=== PATIENT | female | born 1940 | race Caucasian/White ===

== ENCOUNTER 2019-07-12 18:35 | Inpatient (IN) ==
[2019-07-12 19:27] LABS: Basophils # 0.1 10*3/uL (0.0-0.2); Eosinophils # 0.8 10*3/uL (0.0-0.87); Eosinophils % 11.9 % (0.00-10.9); Hemoglobin 9.8 GM/DL (12.0-16.0); Immature Granulocytes % 0.3 %; Immature Granulocytes Absolute 0.02 #; Lymphocytes # 2.8 10*3/uL (1.4-4.0); Lymphocytes % 40.6 % (21.3-54.2); Mean Corpuscular HGB Conc 30.6 GM/DL (32-36); Mean Corpuscular Volume 88.6 FL (87-102); Mean Platelet Volume 10.9 FL (9.6-12.0); Monocytes % 7.9 % (1.7-12.7); Neutrophils % 38.3 % (38.7-73.9); Platelet Count 195 T/CUMM (130-400); Red Blood Count 3.61 MC/CUMM (3.8-5.5); Red Cell Distribution Width 13.4 % (9.3-17.3); White Blood Count 6.8 T/CUMM (4-12)
[2019-07-12 19:40] LABS: PT Patient Result 10.9 SECS; Partial Thromboplastin Time 22.8 SECS (0-40)
[2019-07-12 19:41] LABS: Alanine Aminotransferase 19 U/L (13-56); Albumin 3.1 G/DL (3.4-5.0); Alkaline Phosphatase 60 U/L (45-117); Aspartate Amino Transferase 18 U/L (0-37); Bilirubin,Total < 0.39 MG/DL (0.2-1.0); Blood Urea Nitrogen 13 MG/DL (7-18); Calcium 8.9 MG/DL (8.5-10.1); Glucose 122 MG/DL (74-106); Osmolality,Calculated 283.1 MOS/KG (273-304); Total Protein 6.4 G/DL (6.4-8.3)
[2019-07-12 19:56] LABS: Eosinophils 15 % (0-10); Lymphocytes 44 % (20-55); Segmented Neutrophils 30 % (50-85); Total Cells Counted 100
[2019-07-12 19:58] LABS: Anisocytosis Slight; Microcytosis Slight; Platelet Estimate Normal
[2019-07-12 20:55] LABS: Apearance,Urine Slightly Hazy (Clear); Bilirubin,Urine Negative (Negative); Blood, Urine Negative (Negative); Glucose,Urine (UA) Negative (Negative); Hyaline Casts,Urine 3 /LPF (0-3); Ketones,Urine Negative (Negative); Mucus,Urine Occasional /LPF (Occasional); Nitrite,Urine Negative (Negative); Protein,Urine Negative; RBC,Urine 3 /HPF (0-4); Squamous Epithelial Cell,Urine Occasional /HPF (0-10); Urine Color Yellow (Yellow); Urine Specific Gravity 1.013 (1.001-1.035); Urine Urobilinogen < 2.0 EU/DL (0.2-1.0); WBC,Urine 36 /HPF (0-6)
[2019-07-12] MEDS ORDERED: cefTRIAXone 1,000 MG in SODIUM CHLORIDE 0.9% 100 ML IV STA (20:57)
[2019-07-12 20:59] LABS: Barbiturates Screen,Urine Negative (Negative); Benzodiazepines Screen,Urine Negative (Negative); Cannabinoid Screen,Urine Negative (Negative); Opiate Screen,Urine Negative (Negative); Phencyclidine Screen,Urine Negative (Negative)
[2019-07-13] MEDS ORDERED: DEXTROSE 50% 25 GM/50 ML VIAL IV PRN (00:09)
[2019-07-13] MEDS ORDERED: ONDANSETRON 4 MG/2 ML VIAL IV PRN (00:09)
[2019-07-13] MEDS ORDERED: cloNIDine 0.1 MG TABLET PO PRN (00:09)
[2019-07-13] MEDS ORDERED: ACETAMINOPHEN 325 MG TABLET PO PRN ×2 (00:09)
[2019-07-13] MEDS ORDERED: GLUCAGON 1 MG VIAL IM PRN (00:09)
[2019-07-13] MEDS ORDERED: DOCUSATE SODIUM 100 MG CAPSULE PO PRN (00:09)
[2019-07-13] MEDS ORDERED: cefTRIAXone 1,000 MG in SYRINGE 1 EACH IV SCH (00:30)
[2019-07-13] MEDS: METOPROLOL TARTRATE 100 MG TABLET PO SCH ×3 (00:47→22:50)
[2019-07-13] MEDS: SERTRALINE 25 MG TABLET PO SCH ×2 (00:47→22:50)
[2019-07-13] MEDS: FAMOTIDINE 20 MG TABLET PO SCH ×3 (00:47→22:50)
[2019-07-13] MEDS: LISINOPRIL 20 MG TABLET PO SCH ×3 (00:47→22:50)
[2019-07-13] MEDS: levETIRAcetam 500 MG TABLET PO SCH ×3 (00:47→22:49)
[2019-07-13] MEDS ORDERED: NIFEdipine 10 MG CAPSULE PO ONE (01:00)
[2019-07-13 06:36] LABS: Basophils # 0.1 10*3/uL (0.0-0.2); Basophils % 1.2 % (0.0-0.8); Eosinophils # 0.8 10*3/uL (0.0-0.87); Eosinophils % 13.7 % (0.00-10.9); Hematocrit 30.5 VOL% (35.7-47.0); Hemoglobin 9.4 GM/DL (12.0-16.0); Immature Granulocytes % 0.2 %; Immature Granulocytes Absolute 0.01 #; Lymphocytes # 2.5 10*3/uL (1.4-4.0); Lymphocytes % 41.2 % (21.3-54.2); Mean Corpuscular HGB Conc 30.8 GM/DL (32-36); Mean Corpuscular Volume 88.7 FL (87-102); Mean Platelet Volume 10.8 FL (9.6-12.0); Monocytes % 6.7 % (1.7-12.7); Platelet Count 182 T/CUMM (130-400); Red Blood Count 3.44 MC/CUMM (3.8-5.5); Red Cell Distribution Width 13.2 % (9.3-17.3)
[2019-07-13 07:10] LABS: Calcium 8.7 MG/DL (8.5-10.1); Osmolality,Calculated 289.7 MOS/KG (273-304); Risk Ratio 3.32; VLDL CHOLESTEROL 35.6 MG/DL
[2019-07-13 07:11] LABS: Eosinophils 13 % (0-10); Lymphocytes 46 % (20-55); Segmented Neutrophils 37 % (50-85); Total Cells Counted 100
[2019-07-13 07:12] LABS: % Iron Saturation 13.3 % (18-50); Hypochromasia 1+; Microcytosis Slight; Ovalocytes Slight; Platelet Estimate Adequate
[2019-07-13 07:28] LABS: Folate 7.2 NG/ML (5.4-24.0); Vitamin B12 393 PG/ML (211-911)
[2019-07-13] MEDS ORDERED: NIFEdipine 10 MG CAPSULE PO SCH (08:00)
[2019-07-13 08:20] LABS: Sedimentation Rate-Westergren 26 MM/HR (0-30)
[2019-07-13] MEDS: INSULIN LISPRO 100 UNIT/ML SUBCUT SCH ×4 (09:26→22:48)
[2019-07-13] MEDS ORDERED: ENOXAPARIN 40 MG/0.4 ML SYRINGE SUBCUT SCH (12:00)
[2019-07-13] MEDS ORDERED: ATORVASTATIN 10 MG TABLET PO SCH (21:00)
[2019-07-14] MEDS ORDERED: cefTRIAXone 1,000 MG in SYRINGE 1 EACH IV SCH (01:00)
[2019-07-14 05:04] LABS: Basophils # 0.1 10*3/uL (0.0-0.2); Eosinophils # 0.6 10*3/uL (0.0-0.87); Hematocrit 29.8 VOL% (35.7-47.0); Hemoglobin 9.4 GM/DL (12.0-16.0); Immature Granulocytes % 0.2 %; Immature Granulocytes Absolute 0.01 #; Lymphocytes # 2.7 10*3/uL (1.4-4.0); Lymphocytes % 42.9 % (21.3-54.2); Mean Corpuscular HGB Conc 31.5 GM/DL (32-36); Mean Corpuscular Volume 87.1 FL (87-102); Mean Platelet Volume 10.8 FL (9.6-12.0); Monocytes % 7.1 % (1.7-12.7); Neutrophils % 38.8 % (38.7-73.9); Platelet Count 179 T/CUMM (130-400); Red Blood Count 3.42 MC/CUMM (3.8-5.5); Red Cell Distribution Width 13.3 % (9.3-17.3); White Blood Count 6.2 T/CUMM (4-12)
[2019-07-14 05:40] LABS: Calcium 8.6 MG/DL (8.5-10.1); Osmolality,Calculated 281.3 MOS/KG (273-304)
[2019-07-14] MEDS: INSULIN LISPRO 100 UNIT/ML SUBCUT SCH ×2 (08:04→12:18)
[2019-07-14] MEDS: levETIRAcetam 500 MG TABLET PO SCH (09:32)
[2019-07-14] MEDS: LISINOPRIL 20 MG TABLET PO SCH (09:32)
[2019-07-14] MEDS: FAMOTIDINE 20 MG TABLET PO SCH (09:37)
[2019-07-14] MEDS: METOPROLOL TARTRATE 100 MG TABLET PO SCH (09:37)
[2019-07-14 14:17] VITALS: BP 138/64
== END 2019-07-14 14:35 | DRG 689 ==
LOC: EDBD → EDUNIT# → N.ED 18:35 → N.EDINP 22:29 → N.5E 22:51
PROVIDERS: ADMIT Family Medicine; ATTEND Family Medicine

== ENCOUNTER 2022-05-05 16:31 | Inpatient (IN) ==
[2022-05-05 17:26] LABS: Basophils # 0.1 10*3/uL (0.0-0.2); Basophils % 0.8 % (0.0-0.8); Eosinophils # 0.1 10*3/uL (0.0-0.87); Eosinophils % 1.5 % (0.00-10.9); Hemoglobin 12.9 GM/DL (12.0-16.0); Immature Granulocytes % 0.2 %; Immature Granulocytes Absolute 0.02 #; Lymphocytes # 1.7 10*3/uL (1.4-4.0); Lymphocytes % 18.8 % (21.3-54.2); Mean Corpuscular HGB Conc 33.1 GM/DL (32-36); Mean Corpuscular Volume 89.4 FL (87-102); Mean Platelet Volume 10.2 FL (9.6-12.0); Monocytes # 0.6 10*3/uL (0.11-0.8); Monocytes % 6.6 % (1.7-12.7); Neutrophils % 72.1 % (38.7-73.9); Platelet Count 213 T/CUMM (130-400); Red Blood Count 4.36 MC/CUMM (3.8-5.5); Red Cell Distribution Width 13.6 % (9.3-17.3)
[2022-05-05 17:49] LABS: Albumin 3.8 G/DL (3.4-5.0); Bilirubin,Total 0.4 MG/DL (0.20-1.00); Calcium 9.3 MG/DL (8.5-10.1); Osmolality,Calculated 281.5 MOS/KG (273-304); Potassium 4.2 MMOL/L (3.5-5.1)
[2022-05-05 19:32] LABS: Bacteria,Urine Occasional /HPF (Few); Glucose,Urine (UA) Negative (Negative); Hyaline Casts,Urine 4 /LPF (0-3); Mucus,Urine Occasional /LPF (Occasional); Protein,Urine Negative (Negative); RBC,Urine 10 /HPF (0-4); Squamous Epithelial Cell,Urine Occasional /HPF (0-10); Urine Appearance Clear (Clear); Urine Color Yellow (Yellow)
[2022-05-05 19:33] LABS: Bilirubin,Urine Negative (Negative); Blood, Urine Negative (Negative); Ketones,Urine Trace mg/dL (Negative); Nitrite,Urine Negative (Negative); Urine Urobilinogen 0.2 eU/dL (<2.0)
[2022-05-05] MEDS ORDERED: GLUCAGON 1 MG VIAL IM PRN (20:02)
[2022-05-05] MEDS ORDERED: hydrALAZINE 20 MG/1 ML VIAL IV PRN (20:02)
[2022-05-05] MEDS ORDERED: ONDANSETRON 4 MG/2 ML VIAL IV PRN (20:02)
[2022-05-05] MEDS ORDERED: ACETAMINOPHEN 325 MG TABLET PO PRN (20:02)
[2022-05-05] MEDS ORDERED: DEXTROSE 10% 250 ML BAG IV PRN (20:45)
[2022-05-05] MEDS: INSULIN LISPRO 100 UNIT/ML SUBCUT SCH (22:45)
[2022-05-05] MEDS: FAMOTIDINE 20 MG TABLET PO SCH (22:46)
[2022-05-05] MEDS: SODIUM CHLORIDE 0.9% 1,000 ML IV SCH (22:46)
[2022-05-05] MEDS: METOPROLOL TARTRATE 100 MG TABLET PO SCH (22:46)
[2022-05-05] MEDS: MAGNESIUM OXIDE 400 MG TABLET PO SCH (22:46)
[2022-05-05] MEDS: MELATONIN 3 MG TABLET PO SCH (22:46)
[2022-05-05] MEDS: cefTRIAXone 1,000 MG in SODIUM CHLORIDE 0.9% 100 ML IV SCH (22:46)
[2022-05-05] MEDS: levETIRAcetam 500 MG TABLET PO SCH (22:46)
[2022-05-05] MEDS: SERTRALINE 25 MG TABLET PO SCH (22:46)
[2022-05-05] MEDS: ATORVASTATIN 10 MG TABLET PO SCH (22:46)
[2022-05-06 03:48] LABS: Basophils # 0.1 10*3/uL (0.0-0.2); Basophils % 0.7 % (0.0-0.8); Eosinophils # 0.1 10*3/uL (0.0-0.87); Eosinophils % 1.7 % (0.00-10.9); Hematocrit 36.1 VOL% (35.7-47.0); Hemoglobin 11.9 GM/DL (12.0-16.0); Immature Granulocytes % 0.3 %; Immature Granulocytes Absolute 0.02 #; Lymphocytes # 2.4 10*3/uL (1.4-4.0); Lymphocytes % 34.9 % (21.3-54.2); Mean Corpuscular Volume 90.5 FL (87-102); Mean Platelet Volume 10.1 FL (9.6-12.0); Monocytes # 0.5 10*3/uL (0.11-0.8); Monocytes % 7.8 % (1.7-12.7); Neutrophils % 54.6 % (38.7-73.9); Platelet Count 160 T/CUMM (130-400); Red Blood Count 3.99 MC/CUMM (3.8-5.5); Red Cell Distribution Width 13.5 % (9.3-17.3); White Blood Count 6.9 T/CUMM (4-12)
[2022-05-06 04:19] LABS: Calcium 8.5 MG/DL (8.5-10.1); Osmolality,Calculated 285.1 MOS/KG (273-304); Potassium 4.1 MMOL/L (3.5-5.1); Thyroid Stimulating Hormone 1.67 uIU/ml (0.358-3.74)
[2022-05-06] MEDS: INSULIN LISPRO 100 UNIT/ML SUBCUT SCH ×4 (08:09→21:55)
[2022-05-06] MEDS: MAGNESIUM OXIDE 400 MG TABLET PO SCH ×2 (09:28→21:54)
[2022-05-06] MEDS: levETIRAcetam 500 MG TABLET PO SCH ×2 (09:28→21:54)
[2022-05-06] MEDS: PANTOPRAZOLE 40 MG TABLET PO SCH (09:28)
[2022-05-06] MEDS: DONEPEZIL 5 MG TABLET PO SCH (09:28)
[2022-05-06] MEDS: FAMOTIDINE 20 MG TABLET PO SCH ×2 (09:28→21:54)
[2022-05-06] MEDS: ENOXAPARIN 40 MG/0.4 ML SYRINGE SUBCUT SCH (09:28)
[2022-05-06] MEDS: FEXOFENADINE 180 MG TABLET PO SCH (09:28)
[2022-05-06] MEDS: ASPIRIN CHEW 81 MG TABLET PO SCH (09:28)
[2022-05-06] MEDS: METOPROLOL TARTRATE 100 MG TABLET PO SCH ×2 (09:28→21:54)
[2022-05-06] MEDS: MELATONIN 3 MG TABLET PO SCH (21:53)
[2022-05-06] MEDS: cefTRIAXone 1,000 MG in SODIUM CHLORIDE 0.9% 100 ML IV SCH (21:53)
[2022-05-06] MEDS: SERTRALINE 100 MG TABLET PO SCH (21:54)
[2022-05-06] MEDS: MECLIZINE 25 MG TABLET PO SCH (21:54)
[2022-05-06] MEDS: ATORVASTATIN 10 MG TABLET PO SCH (21:54)
[2022-05-06] MEDS: SODIUM CHLORIDE 0.9% 1,000 ML IV SCH (21:55)
[2022-05-07] MEDS: PANTOPRAZOLE 40 MG TABLET PO SCH (06:05)
[2022-05-07] MEDS: SODIUM CHLORIDE 0.9% 1,000 ML IV SCH ×4 (07:29→21:28)
[2022-05-07] MEDS: SERTRALINE 25 MG TABLET PO SCH (07:30)
[2022-05-07] MEDS: INSULIN LISPRO 100 UNIT/ML SUBCUT SCH ×4 (09:33→21:29)
[2022-05-07] MEDS: FAMOTIDINE 20 MG TABLET PO SCH ×2 (09:34→21:29)
[2022-05-07] MEDS: FEXOFENADINE 180 MG TABLET PO SCH (09:34)
[2022-05-07] MEDS: MAGNESIUM OXIDE 400 MG TABLET PO SCH ×2 (09:35→21:29)
[2022-05-07] MEDS: ASPIRIN CHEW 81 MG TABLET PO SCH (09:35)
[2022-05-07] MEDS: MECLIZINE 25 MG TABLET PO SCH ×3 (09:35→21:29)
[2022-05-07] MEDS: METOPROLOL TARTRATE 100 MG TABLET PO SCH ×2 (09:35→21:29)
[2022-05-07] MEDS: DONEPEZIL 5 MG TABLET PO SCH (09:35)
[2022-05-07] MEDS: levETIRAcetam 500 MG TABLET PO SCH ×2 (09:35→21:29)
[2022-05-07] MEDS: ENOXAPARIN 40 MG/0.4 ML SYRINGE SUBCUT SCH (09:36)
[2022-05-07 09:47] LABS: Calcium 9.1 MG/DL (8.5-10.1); Osmolality,Calculated 274.8 MOS/KG (273-304); Potassium 3.5 MMOL/L (3.5-5.1)
[2022-05-07] MEDS: cefTRIAXone 1,000 MG in SODIUM CHLORIDE 0.9% 100 ML IV SCH (21:28)
[2022-05-07] MEDS: SERTRALINE 100 MG TABLET PO SCH (21:29)
[2022-05-07] MEDS: ATORVASTATIN 10 MG TABLET PO SCH (21:29)
[2022-05-07] MEDS: MELATONIN 3 MG TABLET PO SCH (21:29)
[2022-05-08 04:46] LABS: Basophils # 0.1 10*3/uL (0.0-0.2); Basophils % 0.7 % (0.0-0.8); Eosinophils # 0.2 10*3/uL (0.0-0.87); Hematocrit 40.3 VOL% (35.7-47.0); Hemoglobin 13.5 GM/DL (12.0-16.0); Immature Granulocytes % 0.1 %; Immature Granulocytes Absolute 0.01 #; Lymphocytes % 26.2 % (21.3-54.2); Mean Corpuscular HGB Conc 33.5 GM/DL (32-36); Mean Corpuscular Volume 88.6 FL (87-102); Monocytes # 0.7 10*3/uL (0.11-0.8); Monocytes % 9.5 % (1.7-12.7); Neutrophils % 61.5 % (38.7-73.9); Platelet Count 195 T/CUMM (130-400); Red Blood Count 4.55 MC/CUMM (3.8-5.5); Red Cell Distribution Width 13.3 % (9.3-17.3); White Blood Count 7.4 T/CUMM (4-12)
[2022-05-08 05:01] LABS: Calcium 8.9 MG/DL (8.5-10.1); Osmolality,Calculated 278.4 MOS/KG (273-304); Potassium 3.6 MMOL/L (3.5-5.1)
[2022-05-08] MEDS: PANTOPRAZOLE 40 MG TABLET PO SCH (06:06)
[2022-05-08] MEDS: INSULIN LISPRO 100 UNIT/ML SUBCUT SCH ×4 (08:46→23:48)
[2022-05-08] MEDS: MECLIZINE 25 MG TABLET PO SCH ×3 (10:07→20:52)
[2022-05-08] MEDS: FEXOFENADINE 180 MG TABLET PO SCH (10:07)
[2022-05-08] MEDS: MAGNESIUM OXIDE 400 MG TABLET PO SCH ×2 (10:08→20:51)
[2022-05-08] MEDS: FAMOTIDINE 20 MG TABLET PO SCH ×2 (10:08→20:52)
[2022-05-08] MEDS: levETIRAcetam 500 MG TABLET PO SCH ×2 (10:08→20:51)
[2022-05-08] MEDS: DONEPEZIL 5 MG TABLET PO SCH (10:08)
[2022-05-08] MEDS: ASPIRIN CHEW 81 MG TABLET PO SCH (10:08)
[2022-05-08] MEDS: METOPROLOL TARTRATE 100 MG TABLET PO SCH ×2 (10:08→20:50)
[2022-05-08] MEDS: ENOXAPARIN 40 MG/0.4 ML SYRINGE SUBCUT SCH (10:09)
[2022-05-08] MEDS: SODIUM CHLORIDE 0.9% 1,000 ML IV SCH ×3 (10:12→20:49)
[2022-05-08] MEDS: ATORVASTATIN 10 MG TABLET PO SCH (20:51)
[2022-05-08] MEDS: SERTRALINE 100 MG TABLET PO SCH (20:51)
[2022-05-08] MEDS: MELATONIN 3 MG TABLET PO SCH (20:52)
[2022-05-08] MEDS: MEMANTINE 5 MG TABLET PO SCH (20:52)
[2022-05-09] MEDS: PANTOPRAZOLE 40 MG TABLET PO SCH (05:46)
[2022-05-09] MEDS: SODIUM CHLORIDE 0.9% 1,000 ML IV SCH ×3 (05:52→18:08)
[2022-05-09] MEDS: INSULIN LISPRO 100 UNIT/ML SUBCUT SCH ×4 (07:55→20:19)
[2022-05-09] MEDS: FAMOTIDINE 20 MG TABLET PO SCH ×2 (09:10→21:52)
[2022-05-09] MEDS: levETIRAcetam 500 MG TABLET PO SCH ×2 (09:10→21:51)
[2022-05-09] MEDS: MEMANTINE 5 MG TABLET PO SCH ×2 (09:11→21:52)
[2022-05-09] MEDS: MAGNESIUM OXIDE 400 MG TABLET PO SCH ×2 (09:11→21:51)
[2022-05-09] MEDS: FEXOFENADINE 180 MG TABLET PO SCH (09:11)
[2022-05-09] MEDS: MECLIZINE 25 MG TABLET PO SCH ×3 (09:11→21:52)
[2022-05-09] MEDS: ASPIRIN CHEW 81 MG TABLET PO SCH (09:11)
[2022-05-09] MEDS: METOPROLOL TARTRATE 100 MG TABLET PO SCH ×2 (09:11→21:51)
[2022-05-09] MEDS: ENOXAPARIN 40 MG/0.4 ML SYRINGE SUBCUT SCH (09:12)
[2022-05-09] MEDS: MELATONIN 3 MG TABLET PO SCH (21:51)
[2022-05-09] MEDS: ATORVASTATIN 10 MG TABLET PO SCH (21:51)
[2022-05-09] MEDS: SERTRALINE 100 MG TABLET PO SCH (21:52)
[2022-05-10] MEDS: SODIUM CHLORIDE 0.9% 1,000 ML IV SCH ×2 (04:15→12:08)
[2022-05-10] MEDS: PANTOPRAZOLE 40 MG TABLET PO SCH (05:38)
[2022-05-10] MEDS: INSULIN LISPRO 100 UNIT/ML SUBCUT SCH ×4 (08:36→21:43)
[2022-05-10] MEDS: FEXOFENADINE 180 MG TABLET PO SCH (10:48)
[2022-05-10] MEDS: FAMOTIDINE 20 MG TABLET PO SCH ×2 (10:49→21:41)
[2022-05-10] MEDS: MAGNESIUM OXIDE 400 MG TABLET PO SCH ×2 (10:49→21:41)
[2022-05-10] MEDS: MEMANTINE 5 MG TABLET PO SCH ×2 (10:49→21:41)
[2022-05-10] MEDS: METOPROLOL TARTRATE 100 MG TABLET PO SCH ×2 (10:49→21:41)
[2022-05-10] MEDS: levETIRAcetam 500 MG TABLET PO SCH ×2 (10:49→21:41)
[2022-05-10] MEDS: ASPIRIN CHEW 81 MG TABLET PO SCH (10:50)
[2022-05-10] MEDS: MECLIZINE 25 MG TABLET PO SCH ×3 (10:50→21:41)
[2022-05-10] MEDS: ENOXAPARIN 40 MG/0.4 ML SYRINGE SUBCUT SCH (10:51)
[2022-05-10] MEDS: MELATONIN 3 MG TABLET PO SCH (21:41)
[2022-05-10] MEDS: ATORVASTATIN 10 MG TABLET PO SCH (21:41)
[2022-05-10] MEDS: SERTRALINE 100 MG TABLET PO SCH (21:42)
[2022-05-11] MEDS: PANTOPRAZOLE 40 MG TABLET PO SCH (06:15)
[2022-05-11 07:11] LABS: Calcium 8.6 MG/DL (8.5-10.1); Osmolality,Calculated 282.1 MOS/KG (273-304); Potassium 3.1 MMOL/L (3.5-5.1)
[2022-05-11] MEDS: ENOXAPARIN 40 MG/0.4 ML SYRINGE SUBCUT SCH (10:18)
[2022-05-11] MEDS: FEXOFENADINE 180 MG TABLET PO SCH (10:20)
[2022-05-11] MEDS: MECLIZINE 25 MG TABLET PO SCH ×3 (10:20→20:30)
[2022-05-11] MEDS: levETIRAcetam 500 MG TABLET PO SCH ×2 (10:20→20:29)
[2022-05-11] MEDS: FAMOTIDINE 20 MG TABLET PO SCH ×2 (10:20→20:29)
[2022-05-11] MEDS: METOPROLOL TARTRATE 100 MG TABLET PO SCH ×2 (10:20→20:30)
[2022-05-11] MEDS: MEMANTINE 5 MG TABLET PO SCH ×2 (10:20→20:30)
[2022-05-11] MEDS: ASPIRIN CHEW 81 MG TABLET PO SCH (10:20)
[2022-05-11] MEDS: MAGNESIUM OXIDE 400 MG TABLET PO SCH ×2 (10:21→20:29)
[2022-05-11] MEDS: POTASSIUM CHLORIDE 20 MEQ TABLET PO PRN ×4 (10:21→18:15)
[2022-05-11] MEDS: SODIUM CHLORIDE 0.9% 1,000 ML IV SCH ×3 (10:22→22:21)
[2022-05-11] MEDS: INSULIN LISPRO 100 UNIT/ML SUBCUT SCH ×4 (10:22→21:47)
[2022-05-11] MEDS: ATORVASTATIN 10 MG TABLET PO SCH (20:29)
[2022-05-11] MEDS: SERTRALINE 100 MG TABLET PO SCH (20:29)
[2022-05-11] MEDS: MELATONIN 3 MG TABLET PO SCH (20:30)
[2022-05-12 05:00] LABS: Basophils % 0.8 % (0.0-0.8); Eosinophils # 0.2 10*3/uL (0.0-0.87); Eosinophils % 2.9 % (0.00-10.9); Hematocrit 36.6 VOL% (35.7-47.0); Hemoglobin 12.3 GM/DL (12.0-16.0); Immature Granulocytes % 0.2 %; Immature Granulocytes Absolute 0.01 #; Lymphocytes # 2.1 10*3/uL (1.4-4.0); Lymphocytes % 39.7 % (21.3-54.2); Mean Corpuscular HGB Conc 33.6 GM/DL (32-36); Mean Corpuscular Volume 88.6 FL (87-102); Mean Platelet Volume 10.2 FL (9.6-12.0); Monocytes # 0.5 10*3/uL (0.11-0.8); Monocytes % 10.1 % (1.7-12.7); Neutrophils % 46.3 % (38.7-73.9); Platelet Count 193 T/CUMM (130-400); Red Blood Count 4.13 MC/CUMM (3.8-5.5); Red Cell Distribution Width 13.5 % (9.3-17.3); White Blood Count 5.2 T/CUMM (4-12)
[2022-05-12 05:20] LABS: Calcium 8.4 MG/DL (8.5-10.1); Osmolality,Calculated 280.3 MOS/KG (273-304); Potassium 3.8 MMOL/L (3.5-5.1)
[2022-05-12] MEDS: PANTOPRAZOLE 40 MG TABLET PO SCH (05:47)
[2022-05-12] MEDS: ENOXAPARIN 40 MG/0.4 ML SYRINGE SUBCUT SCH (08:20)
[2022-05-12] MEDS: MECLIZINE 25 MG TABLET PO SCH (08:21)
[2022-05-12] MEDS: METOPROLOL TARTRATE 100 MG TABLET PO SCH (08:21)
[2022-05-12] MEDS: FEXOFENADINE 180 MG TABLET PO SCH (08:21)
[2022-05-12] MEDS: MAGNESIUM OXIDE 400 MG TABLET PO SCH (08:21)
[2022-05-12] MEDS: ASPIRIN CHEW 81 MG TABLET PO SCH (08:21)
[2022-05-12] MEDS: FAMOTIDINE 20 MG TABLET PO SCH (08:21)
[2022-05-12] MEDS: MEMANTINE 5 MG TABLET PO SCH (08:21)
[2022-05-12] MEDS: levETIRAcetam 500 MG TABLET PO SCH (08:22)
[2022-05-12] MEDS: INSULIN LISPRO 100 UNIT/ML SUBCUT SCH (08:22)
[2022-05-12] MEDS: POTASSIUM CHLORIDE 20 MEQ TABLET PO PRN (08:22)
[2022-05-12] MEDS: SODIUM CHLORIDE 0.9% 1,000 ML IV SCH (08:22)
[2022-05-12 11:56] VITALS: BP 147/71
== END 2022-05-12 13:14 | disposition swing bed (61) | DRG 149 ==
LOC: EDBD → EDUNIT# → N.ED 16:31 → N.EDINP 16:31 → SUATTDRO 20:02 → N.5E 05-06 15:31 → SUATTDRO 05-07 15:38
PROVIDERS: ADMIT Hospitalist; ATTEND Internal Medicine